=== PATIENT | male | born 1995 | race Asian ===

== ENCOUNTER 2022-06-12 00:53 | Emergency (ER) | payer OTHER ==
[~2022-06-12] VITALS: Ht 172.7 cm; Wt 81.8 kg
[2022-06-12] MEDS ORDERED: ZYRTEC 10MG10 MG PO (01:10)
[2022-06-12 01:28] VITALS: BP 135/78; PULSE 76; TEMP 98.2
== END 2022-06-12 01:28 | disposition home or self-care (01) ==
LOC: COL.ER 00:53
DX: J30.9 Allergic rhinitis, unspecified (principal)

== ENCOUNTER 2024-01-18 18:44 | Emergency (ER) | payer OTHER ==
[~2024-01-18] VITALS: Ht 170.2 cm; Wt 81.8 kg
[~2024-01-18 18:44] MED LIST: AMOXICILLIN 8751 TAB PO; ZITHROMAX Z PA250 MG PO; ZYRTEC 10MG10 MG PO
[2024-01-18] MEDS ORDERED: Fluticasone Nasal 50 MCG/Spray 16 GM BOTTLE NS ONE (19:30)
[2024-01-18 19:34] VITALS: BP 146/85; PULSE 86; TEMP 98.1
== END 2024-01-18 19:34 | disposition home or self-care (01) ==
LOC: COL.ER 18:44
DX: J30.9 Allergic rhinitis, unspecified (principal)